=== PATIENT | male | born 1995 | race Caucasian/White ===

== ENCOUNTER 2016-11-08 00:46 | Emergency (ER) | payer BC ==
[~2016-11-08] VITALS: Ht 175.3 cm; Wt 81.8 kg
[~2016-11-08 00:46] MED LIST: PEPCID 20MG TAB20 MG PO; SOLODYN45 MG PO; VYVANSE40 MG PO; ZYRTEC 10MG10 MG PO
[2016-11-08 00:51] VITALS: BP 107/79; TEMP 97.4
[2016-11-08 01:50] LABS: AMPHETAMINE URINE NEGATIVE; BARBITURATES URINE NEGATIVE; BENZODIAZEPINES URINE NEGATIVE; BUPRENORPHINE URINE NEGATIVE; METHADONE URINE NEGATIVE; OPIATES URINE NEGATIVE; OXYCODONE URINE NEGATIVE; PHENCYCLIDINE URINE NEGATIVE; PROPOXYPHENE URINE NEGATIVE; THC CANNABINOIDS URINE NEGATIVE
[2016-11-08 07:10] VITALS: PULSE 82
== END 2016-11-08 07:18 | disposition home or self-care (01) ==
LOC: COL.ER 00:46
PROVIDERS: Physician Assistant
DX: F10.129 Alcohol abuse with intoxication, unspecified (principal)
CPT/HCPCS: J7030